=== PATIENT | female | born 1940 | race Caucasian/White ===

== ENCOUNTER 2017-02-26 16:47 | Inpatient (IN) | payer MEDICARE ==
[~2017-02-26] VITALS: Ht 165.1 cm; Wt 73.6 kg
[2017-02-26] VITALS (7 sets, daily range): BP systolic 67–139; BP diastolic 38–94; PULSE 85–113; RESP 12–20; O2SAT 99–100
[2017-02-26 18:45] LABS: APPEARANCE,URINE TURBID (CLEAR,HAZY); COLOR,URINE YELLOW (YELLOW); OCCULT BLOOD,URINE LARGE (NEGATIVE); PH,URINE 5.5 (5.0-8.0); UROBILINOGEN,URINE NORMAL (NORMAL)
--- NOTE | 2017-02-26 19:04 | ED.REPORT ---
HPI-General Illness Date of Service Feb 26, 2017 ED Provider: Dusty Heredia MD A 77 year old female with a history of rectovaginal fistula is referred to the ED from clinic due to hypotension. The pt was seen by her PCP today in a routine appointment and her blood pressure was found to be low. The pt denies any symptoms whatsoever and states that she feels fine. She denies chest pain, shortness of breath, headache, lightheadedness, vision changes, abdominal pain, nausea or vomiting. The pt has an appointment with a citrus picker to address a presumed rectovaginal fistula, which she noticed in 07/2017. The pt has been passing liquid stool for six months. She had a CT scan in 09/2016, which showed the fistula. Nursing Notes Stated Complaint: ORTHOSTATIC Chief Complaint: General Complaint Nursing Notes Reviewed: Yes Allergies: Coded Allergies: No Known Allergies (Unverified , 02/26/17) Scheduled Aspirin Chew (Aspirin Chew) 81 Mg Chew 81 MG PO DAILY Atorvastatin (Lipitor) 40 Mg Tablet 40 MG PO DAILY Ciprofloxacin (Ciprofloxacin) 500 Mg/5 Ml Talisha.mc.rec 500 MG PO BID Miscellaneous Medications Multivitamin (Multivitamins) 1 Each Capsule 1 EACH PO General Time Seen by MD: 17:02 Chief Complaint Other (Hypotension) Hx Obtained From: Patient Arrived By: Walk-in Sudden in Onset?: No Recent Healthcare: No recent hospitalization, Recent doctor visit Similar Sx Previous: No Past Medical History Past Medical History rectovaginal fistula Past Surgical History none reported Smoking History Current Every Day Smoker Ambulatory Status Independent Review of Systems hypotension Full Review of Systems Respiratory: Denies: Non-productive cough, Shortness of breath Cardiovascular: Denies: Chest pain GI: Reports: Diarrhea, Denies: Abdominal pain, Nausea, Vomiting Musculoskeletal: Denies: Back pain, Neck pain Skin: Denies Rash Neurologic: Denies: Lightheaded, Numbness, Vision change Complete sys rev & neg: except as marked. Physical Exam Constitutional: Well-developed, well-nourished. Not diaphoretic. Head: Normocephalic and atraumatic. Mouth/Throat: Oropharynx is clear. Mucus membranes dry. No oropharyngeal exudate. Eyes: EOM are normal. Pupils are equal, round, and reactive to light. Neck: Supple, no tracheal deviation. Cardiovascular: Normal rate, regular rhythm. Equal and intact distal pulses throughout. Pulmonary/Chest: Effort normal and breath sounds normal. No respiratory distress. Abdominal: Soft. No distension. There is no tenderness, rebound, or guarding. Bowel sounds present. Musculoskeletal: Range of motion grossly intact, moving all extremities. No edema or tenderness appreciated. Neurological: AOx3. Grossly nonfocal exam. Strength and sensation intact and equal to bilateral upper and lower extremities. Skin: Warm and dry, no rashes or pallor appreciated. Psychiatric: Appropriate mood and affect. Behavior appears normal. Vital Signs Vital Signs Date Time Temp Pulse Resp B/P Pulse Ox O2 Delivery O2 Flow Rate FiO2 02/26/17 21:53 90 17 124/82 100 Room Air 02/26/17 20:20 36.6 99 17 122/94 100 Room Air 02/26/17 18:40 113 14 67/38 100 Room Air 02/26/17 18:39 85 14 122/66 100 Room Air 02/26/17 18:05 85 12 122/72 100 Room Air 02/26/17 17:10 36.6 93 12 139/63 100 Room Air Initial VS: Reviewed Interpretation & Diagnostics Lab Results Interpretation Result Diagram: 02/27/17 0545 02/27/17 0545 Test 02/26/17 19:25 02/26/17 19:44 02/26/17 20:06 Urine Color Dark yellow (YELLOW) Urine Appearance Cloudy (CLEAR,HAZY) Urine pH 7.0 (5.0-8.0) Urine Specific [place] 1.010 (1.003-1.035) Urine Protein Tracemg/dL (NEG,TRACE) Urine Glucose (UA) Negativemg/dL (NEGATIVE) Urine Ketones Negativemg/dL (NEGATIVE) Urine Occult Blood Large (NEGATIVE) Urine Nitrite Positive (NEGATIVE) Urine Bilirubin Negative (NEGATIVE) Urine Urobilinogen Normalmg/dL (NORMAL) Urine Leukocyte Esterase Large (NEGATIVE) Urine RBC 3-10/hpf (0-2) Urine WBC 6-10/hpf (0-5) Urine Epithelial Cells Few/hpf (NONE-MOD) Urine Crystals None seen (NONE SEEN) Urine Bacteria Many/hpf (NONE-FEW) Urine Hyaline Casts None/lpf (NONE) Urine Granular Casts None seen (NONE SEEN) Urine Waxy Casts None seen (NONE SEEN) Urine Red Blood Cell Casts None seen (NONE SEEN) Urine White Blood Cell Casts None seen (NONE SEEN) Urine Mucus None seen (None Seen) Urine Trichomonas None seen (NONE SEEN) Urine Yeast None (NONE SEEN) Urinalysis Comment None Urine Culture Reflexed Indicated Hold Urine Received (Received) Prothrombin Time 10.6sec (8.1-12.5) Prothromb Time International Ratio 0.99ratio Magnesium Level 2.0mg/dL (1.6-2.6) Troponin T < 0.010ug/L (0.0-0.011) Lipase 49U/L (13-60) Procalcitonin 0.05ng/mL (0.00-0.08) Hold Irizarry Top Tube Received (Received) X-Ray Chest Interpretation Chest Xray Interpretation: IMPRESSION: Diffuse interstitial changes, probably chronic scarring although technically age-indeterminate given the absence of prior studies, therefore recommend clinical correlation to exclude atypical/viral pneumonia. No focal consolidation Dictated by: Anton Castillo M.D. on 02/26/2017 at 20:08 Approved by: Anton Castillo M.D. on 02/26/2017 at 20:09 Interpretation / Wet Read by: Interpret - Radiologist Re-Eval/Medical Decision Med Decision/Clinical Course 77-year-old female presenting to the ED for hypotension noticed in clinic. Asymptomatic with the exception of large volume diarrhea through her presumed rectovaginal fistula. She does have some evidence of UTI. Started on antibiotics in the emergency department. Orthostatics in the emergency department were positive, associated with both tachycardia and hypertension; please see nursing documentation. Given several liters of IV fluids here in the emergency department. Given the above, plan admission for further evaluation and management. Patient agreeable to the plan as stated, no further questions. Source of Hx: Old records Time of Eval: 17:02 Patient Status: Condition improved Re-Evaluation/Progress Note: Pt informed of the need for admission during the initial interview. The pt understands and agrees with the plan. All questions are addressed at this time. Consultation : Referral / Consult Name: Evelio Granados MD Consulted With: Hospitalist Call Returned at: 22:16 Personal Counselor: Agrees with eval, Agrees with plan, Accepts admit Note: Spoke with Dr. Granados, hospitalist, regarding pt's case. Dr. Granados agrees with the evaluation and agrees to admit the pt. Counseled Regarding: Diagnosis, Lab results, Need for admission Discharge & Departure Primary Impression: UTI (urinary tract infection) Urinary tract infection type: site unspecified Hematuria presence: without hematuria Qualified Code: N39.0 - Urinary tract infection, site not specified Additional Impressions: Hypotension Hypotension type: unspecified hypotension type Qualified Code: I95.9 - Hypotension, unspecified Dehydration Disposition: ADMITTED TO HOSPITAL Discharge Condition All VS Reviewed: Yes Condition: Stable Referrals: Flaco Miller (PCP) Rosalba Attestation Portions of this note were transcribed by Michael Esquivel. I, Dr. Heredia personally performed the history, physical exam and medical decision-making; I reviewed and confirmed the accuracy of the information in the transcribed note. Signed by: Rosalba Pizarro, 02/26/2017 and 2249. copies to: Flaco Miller William B MD Feb 26, 2017 19:04 MICHAEL ESQUIVEL Feb 26, 2017 19:11 81mg/dL (60-99) Calcium Level 8.5mg/dL (8.5-10.1) Magnesium Level 2.0mg/dL (1.6-2.6) Total Bilirubin 0.3mg/dL (0.0-1.2) Aspartate Amino Transf (AST/SGOT) 14U/L (0-50) Alanine Aminotransferase (ALT/SGPT) 7U/L (0-32) Alkaline Phosphatase 61U/L (25-165) Troponin T < 0.010ug/L (0.0-0.011) Total Protein 7.2g/dL (6.4-8.4) Albumin 3.1g/dL (3.4-5.0) Lipase 49U/L (13-60) Hold Irizarry Top Tube Received (Received) X-Ray Chest Interpretation Chest Xray Interpretation: IMPRESSION: Diffuse interstitial changes, probably chronic scarring although technically age-indeterminate given the absence of prior studies, therefore recommend clinical correlation to exclude atypical/viral pneumonia. No focal consolidation Dictated by: Anton Castillo M.D. on 02/26/2017 at 20:08 Approved by: Anton Csatillo M.D. on 02/26/2017 at 20:09 Interpretation / Wet Read by: Interpret - Radiologist Re-Eval/Medical Decision Source of Hx: Old records Time of Eval: 17:02 Patient Status: Condition improved Re-Evaluation/Progress Note: Pt informed of the need for admission during the initial interview. The pt understands and agrees with the plan. All questions are addressed at this time. Consultation : Referral / Consult Name: Evelio Granados MD Consulted With: Hospitalist Call Returned at: 22:16 Personal Counselor: Agrees with eval, Agrees with plan, Accepts admit Note: Spoke with Dr. Granados, hospitalist, regarding pt's case. Dr. Granados agrees with the evaluation and agrees to admit the pt. Counseled Regarding: Diagnosis, Lab results, Need for admission Discharge & Departure Primary Impression: UTI (urinary tract infection) Urinary tract infection type: site unspecified Hematuria presence: without hematuria Qualified Code: N39.0 - Urinary tract infection, site not specified Additional Impressions: Hypotension Hypotension type: unspecified hypotension type Qualified Code: I95.9 - Hypotension, unspecified Dehydration Disposition: ADMITTED TO HOSPITAL Discharge Condition All VS Reviewed: Yes Condition: Stable Referrals: Flaco Miller (PCP) Rosalba Attestation Portions of this note were transcribed by Michael Esquivel. I, Dr. Heredia personally performed the history, physical exam and medical decision-making; I reviewed and confirmed the accuracy of the information in the transcribed note. Signed by: Rosalba Pizarro, 02/26/2017 and 2249. copies to: Flaco Miller William B MD Feb 26, 2017 19:04 MICHAEL ESQUIVEL Feb 26, 2017 19:11
[2017-02-26] MEDS: 0.9% Sodium Chloride 1,000 ML IV ONE ×2 (19:54→19:58)
[2017-02-26 20:01] LABS: APPEARANCE,URINE CLOUDY (CLEAR,HAZY); COLOR,URINE DARK YELLOW (YELLOW)
[2017-02-26 20:02] LABS: OCCULT BLOOD,URINE LARGE (NEGATIVE); UROBILINOGEN,URINE NORMAL (NORMAL)
--- NOTE | 2017-02-26 20:11 | DRSVH ---
PROCEDURE: X-RAY CHEST ONE VIEW, PORTABLE ([id number]) INDICATIONS: hypotension TECHNIQUE: One view of the chest was acquired. COMPARISON: None. FINDINGS: Surgical changes and devices: None. Lungs and pleura: No pleural effusions or pneumothorax. Widespread bilateral interstitial change. No focal consolidation. Mediastinum: Mediastinal contours appear normal. Heart size is normal. Bones and chest wall: No suspicious bony lesions. Overlying soft tissues appear unremarkable. IMPRESSION: Diffuse interstitial changes, probably chronic scarring although technically age-indeterm inate given the absence of prior studies, therefore recommend clinical correlation to exclude atypica l/viral pneumonia. No focal consolidation Dictated by: Anton Castillo M.D. on 02/26/2017 at 20:08 Approved by: Anton Castillo M.D. on 02/26/2017 at 20:09
[2017-02-26 20:17] LABS: BASOPHILS % (AUTO) 0.5 % (0-3); EOSINOPHILS % (AUTO) 1.5 % (0-5); MONOCYTES % (AUTO) 8.6 % (4-12); Mean Corpuscular Hemoglobin 27.3 pg (27.0-35.0); Mean Corpuscular Volume 83.9 fL (81-100); NEUTROPHILS % (AUTO) 55.7 % (40-74); Platelet Count 383 bil/L (150-400)
[2017-02-26 20:34] LABS: INR 0.99 ratio
[2017-02-26 20:42] LABS: TROPONIN T < 0.010 ug/L (0.0-0.011)
[2017-02-26 20:52] LABS: Lipase 49 U/L (13-60)
[2017-02-26] MEDS ORDERED: levoFLOXacin Inj 750 MG in IV Premix 1 EACH IV ONE (22:20)
[2017-02-26] MEDS ORDERED: Polyethylene Glycol (PEG) 17 Gm Powder PO PRN (22:30)
[2017-02-26] MEDS ORDERED: Ondansetron 2 mg/mL 2 mL Inj IVPUSH PRN (22:30)
[2017-02-26] MEDS ORDERED: Alum-Mag Hydrox-Simeth 30 mL Suspension PO PRN (22:30)
--- NOTE | 2017-02-26 23:03 | PCM.HPMED ---
Subjective Date of Service Feb 26, 2017 Primary Provider: Admitting Physician: Evelio Granados MD Primary Care Physician: Flaco Miller Attending Physician: Evelio Granados MD Chief Complaint: Hypotension History of Present Illness: Josette Herndon is a pleasant 77-year-old woman who was referred to the emergency department by her primary care doctor established care visit for very low blood pressure, reportedly by patient they were unable to find it numerous times because it was so low. Patient denies any lightheadedness or dizziness, confusion, chest pain, shortness of breath, cough, palpitations, NVD, hematochezia or melena. Reportedly, she has an appointment with percussion tuner to address a rectovaginal fistula that she found in September of this year, that appointment is scheduled for 03/22/2017. She additionally conveys that in September of this year she was in [facility] for suicidal ideation and malnutrition, which when she was diagnosed with a urinary tract infection was treated there as well over the course of 8 days. Prior to her doctor's visit today, she states yesterday she was at an nurse emergency for preop evaluation where they reportedly found "branching of her heartbeat" and did not clear her for cataract surgery. Vitals in the emergency department show on presentation to be 139/63, 93, 12, 36.6, 100% on room air Orthostatics revealed a drop in blood pressure to 67/38 with an accompanying heart rate of 113. She was asymptomatic during that event. Hemoglobin 11.4, WBC 11.1 CMP unremarkable, troponin negative, lipase negative Urinalysis was dark yellow, pH 7, trace protein, large occult blood, positive nitrite, large leukocyte esterase, 3-10 RBC per high-power field, 6-10 WBC, few epithelial cells, many bacteria EKG was performed by EMS: Sinus rhythm, left axis deviation, rate 90, QTc 454, VA 142, left bundle branch block, "possible inferior infarct-age indeterminate" Chest x-ray showed diffuse interstitial changes, probable chronic scarring, with no previous x-ray to compare to. Based on objective hypotension, finding of urinary tract infection in the presence of rectovaginal fistula, patient is admitted to the medical floor and started on antibiotics and placed on telemetry. Review of Systems: A comprehensive review of systems was conducted with the patient and found to be negative except as above in the history of presenting illness. Allergies Coded Allergies: No Known Allergies (Unverified , 02/26/17) Home Medications ASA 81 mg by mouth daily Multivitamin daily PMH Alcoholism, sober forty years Chronic tobacco abuse Rectovaginal fistula History of suicidal ideation and malnutrition Surgical History Hysterectomy, Tonsillectomy in childhood Family History Mom passed from unknown reason in her 80s Dad past of unknown cancer in his 80s Older and younger brothers have both had myocardial infarctions older brother is . Social History Hx Alcohol Use: No (sober from alcoholic 40 years) Hx Substance Use: No Hx Tobacco Use: Yes Smoking Status: Current Every Day Smoker (10 cigarettes per day since 16 years old) Living Arrangement: Alone Exam Vital Signs Vital Sign - Last Date Time Temp Pulse Resp B/P Pulse Ox O2 Delivery O2 Flow Rate FiO2 02/26/17 22:55 36.6 90 17 124/82 100 Room Air Exam General: Laying in bed, no apparent distress. Appropriate and pleasant affect HEENT: Normocephalic, atraumatic, EOMI grossly, mucous membranes moist, neck supple without lymphadenopathy, conjunctiva are pink Cardiovascular: Regular rate and rhythm, no clicks murmurs rubs, peripheral pulses 2/4 equal bilaterally Pulmonary: Clear to auscultation bilaterally, no W/R/R. Abdominal: Soft to palpation, bowel sounds present 4, no hepatosplenomegaly. Negative rebound. Negative CVA tenderness Extremities: No edema appreciated. No tenderness, asymmetry. Neuro: Neurologically grossly intact, strength is equal bilaterally upper and lower extremities. MSK: Able to move extremities on their own volition, strength 5 out of 5 equal bilaterally to upper and lower extremities. Lab and Diagnostics Result Diagram: 02/26/17200502/26/172005 X-Rays, CTs and MRIs General: Laying in bed, no apparent distress. Appropriate and pleasant affect HEENT: Normocephalic, atraumatic, EOMI grossly, mucous membranes moist, neck supple without lymphadenopathy, conjunctiva are pink Cardiovascular: Regular rate and rhythm, no clicks murmurs rubs, peripheral pulses 2/4 equal bilaterally Pulmonary: Clear to auscultation bilaterally, no W/R/R. Abdominal: Soft to palpation, bowel sounds present 4, no hepatosplenomegaly. Negative rebound. Extremities: No edema appreciated. No tenderness, asymmetry. Neuro: Neurologically grossly intact, strength is equal bilaterally upper and lower extremities. MSK: Able to move extremities on their own volition, strength 5 out of 5 equal bilaterally to upper and lower extremities. Psych: Oriented to person place time, situation. Appropriate mood and affect, laughs about previously being suicidal. 12-lead ECG Sinus rhythm, left axis deviation, rate 90, QTc 454, VA 142, left bundle branch block, "possible inferior infarct-age indeterminate" Assessment & Plan 77-year-old woman with rectovaginal fistula presents with orthostatic hypotension, being found to be hypotensive previous 2 days by outpatient medical staff, has remained nonsymptomatic. Subsequently found to have left bundle branch block, urinary tract infection with red blood cells present. Acute urinary tract infection, present on admission, active Urinalysis showed positive nitrites, many bacteria, white blood cells, and up to 10 red blood cells per high-powered field, 1 dose level of levofloxacin given in the emergency department Urine to culture and sensitivity Change antibiotics to ceftriaxone IV, do not suspect ESBL Acquire [place] hospitalization records to compare previous urinalysis/ culture and sensitivities. Acute hemorrhagic cystitis, present on admission, active Most likely secondary to above. However, bladder cancer not ruled out given significant smoking history. Will review previous UA from [place] when records available. Re-check urine following ABX treatment, if still present, follow up with urology as out patient. Nonsymptomatic Orthostatic Hypotension, present on admission, active Producible in the emergency department, heart rate increased to 113 from 85, systolic decrease from 122 to 67. EKG showing left bundle branch block, no previous to compare with. Risk factors include long-standing tobacco abuse Echocardiogram in the morning Troponin negative Placed on telemetry Request records from [facility]. Acute leukocytosis, present on admission, active White blood cells 11.1, no left shift. Most likely secondary to urinary tract infection as described above Chronic Rectovaginal fistula, POA, Has appointment with Dr. Keita on 03/22/2017 at [facility] Tobacco use disorder, POA, uncontrolled 14mg/hr transdermal patch every 24 hours PRN Tobacoo cessation education History of depression, stable Denies SI/HI at this time Patient admitted under inpatient status with expected length of stay > 2 midnights for severity of present symptoms, complexities of treatment plan and risk for adverse events Pain Evaluation: Adequate Pain Control GI Prophylaxis: Not indicated VTE Prophylaxis: Sub-Q Heparin (Unfractionated) Resuscitation Status: CPR: Attempt Resuscitation Attending Statement The patient was seen and examined together with Dr. Stewart on 02/27 and I agree with the history, exam and plan as outlined in the note above. Michael Guevara DO Feb 26, 2017 23:03 Evelio Granados MD Feb 27, 2017 03:18
[2017-02-27] VITALS (7 sets, daily range): BP systolic 84–143; BP diastolic 57–79; PULSE 86–130; RESP 18–20; O2SAT 95–96
[2017-02-27] MEDS ORDERED: MULT1CAP33 PO (00:58)
[2017-02-27] MEDS ORDERED: ASPI81TA3 PO (00:58)
[2017-02-27] MEDS: Heparin 5,000 Unit/mL Inj SUBQ SCH ×2 (01:04→08:30)
--- NOTE | 2017-02-27 02:05 | NUR ---
Pt admitted to [facility] rm [id number] at 2330 from ED. Pt had been to see her new primary MD today and it was noted she had severe hypotension but was asymptomatic. Pt had been to her eye MD day before for pre op for cataract surgery and was found to have left bundle branch block and surgery was canceled. Pt diagnosed with UTI and hypotension. A/O x4. Pt is FULL CODE. Oriented to room, call light and bathroom. Advised Pt she is at risk for falls with hypotension and she became very upset and angry. Stated she was tired and needed to sleep and did not want vitals taken and she did not need any help. She did not understand why she was here. And she was not going to use her call light for help. Explained why she was admitted and procedures. Pt began to cry and stated "it feels so good to cry finally" she went on to explain she have been suicidal in September and was admitted to [place]. She assured she was not a suicide threat, and has been to counseling. After assessing balance, gait and VS as stable, She agreed she would use BSC and the call light as she has urgency with bowels due to fistula between bowel and vagina. Pt became very happy, joking and apologized for her "grouchy" behavior when she arrived. Finished orienting Pt to room. IV right FA, asymptomatic, SL. 0 c/o pain. Call light within reach, bed in low position.
[2017-02-27 06:34] LABS: BASOPHILS % (AUTO) 0.7 % (0-3); MONOCYTES % (AUTO) 11.6 % (4-12); Mean Corpuscular Hemoglobin 27.4 pg (27.0-35.0); Mean Corpuscular Volume 84.3 fL (81-100); NEUTROPHILS % (AUTO) 48.8 % (40-74); Platelet Count 408 bil/L (150-400)
[2017-02-27] MEDS ORDERED: cefTRIAXone Inj 1,000 MG in Dextrose 5% Minibag Plus 50 ML IV SCH (08:00)
[2017-02-27] MEDS ORDERED: Nystatin 100,000 Unit/Gm 15 Gm Powder TOPICAL SCH (09:55)
--- NOTE | 2017-02-27 10:39 | PCM.PNMED ---
Subjective Date of Service Feb 27, 2017 Subjective pt denied any symptoms, stated she had urinary frequency 15-20 urination per day since Sep. noted markedly positive orthostatic vs134/79 supine, 84/57 standing. pt was not symptomatic, ambulating okay Exam Vital Signs Vital Sign - Last Date Time Temp Pulse Resp B/P Pulse Ox O2 Delivery O2 Flow Rate FiO2 02/27/17 10:00 88 02/27/17 09:24 84/57 02/27/17 08:54 36.7 18 95 Room Air Intake and Output 02/26/17 02/26/17 02/27/17 Cumulative From/Thru 15:00 23:00 07:00 02/26/17 17:10 - 02/27/17 00:09 Intake Total 2000 ml 2000 ml Balance 2000 ml 2000 ml IV Total 2000 ml 2000 ml Exam NAD, comfortably laying down on the bed no JVD, MMM, no LAD RRR, nl s1, s2 no mrg CTAB, no w,c S,ND,NT,normoactive BS+ warm, no edema, pulses 2/2 IVs and Medications Medications Reviewed: Medications were reviewed in detail Lab and Diagnostics Result Diagram: 02/27/1754402/27/17 0545 X-Rays, CTs and MRIs General: Laying in bed, no apparent distress. Appropriate and pleasant affect HEENT: Normocephalic, atraumatic, EOMI grossly, mucous membranes moist, neck supple without lymphadenopathy, conjunctiva are pink Cardiovascular: Regular rate and rhythm, no clicks murmurs rubs, peripheral pulses 2/4 equal bilaterally Pulmonary: Clear to auscultation bilaterally, no W/R/R. Abdominal: Soft to palpation, bowel sounds present 4, no hepatosplenomegaly. Negative rebound. Extremities: No edema appreciated. No tenderness, asymmetry. Neuro: Neurologically grossly intact, strength is equal bilaterally upper and lower extremities. MSK: Able to move extremities on their own volition, strength 5 out of 5 equal bilaterally to upper and lower extremities. Psych: Oriented to person place time, situation. Appropriate mood and affect, laughs about previously being suicidal. 12-lead ECG Sinus rhythm, left axis deviation, rate 90, QTc 454, [place] 142, left bundle branch block, "possible inferior infarct-age indeterminate Assessment & Plan 77-year-old woman with rectovaginal fistula presents with orthostatic hypotension, being found to be hypotensive previous 2 days by outpatient medical staff, has remained nonsymptomatic. Subsequently found to have left bundle branch block, urinary tract infection with red blood cells present. acute, active acute on chronic UTI, POA, only sx with frequency, UA+ for pyruia/bacteriuria -empirically started CFX, will continue for now marked orthostatic hypotension, POA, unclear etiology, pt doesn't have known autonomic instability not diabetic, no sig cardiovascular dz. no prior falls -will consider TTE, repeat orthostatic on bilateral arms -consider fludrocortisone if pt is symptomatic -continue telemetry -get lipid panel, a1c for risk stratification chronic, stable, Chronic Rectovaginal fistula, POA, likely related to remote hx of hysterectomy, -Has appointment with Dr. Keita on 03/22/2017 at [facility], -addressed strict hygiene on perineum especially given risks of UTI -will consider CT if sx worses Tobacco use disorder, POA, uncontrolled, contiue 14mg/hr transdermal patch every 24 hours PRN, Tobacoo cessation education History of depression, diet: general dispo: likely 1-2days, home no need dvt ppx: LMWH FC GI Prophylaxis: Not indicated VTE Prophylaxis: Sub-Q Heparin (Unfractionated) VTE Mechanical Devices: Intermittant Pneumatic CD Resuscitation Status: CPR: Attempt Resuscitation Time spent 35min Rashad Bravo MD Feb 27, 2017 10:39
--- NOTE | 2017-02-27 12:22 | NUR ---
[facility] signed
--- NOTE | 2017-02-27 13:59 | NUR ---
Orthostatic BP Did orthostatic BP this am was 134/79 when laying down, 104/71 when sitting up and 84/57 when standing. took pt BP this afternoon after she had just sat down after walking around room. Was 115/68 Addendum: 02/27/17 at 1800 by JUAN F LIGHT RN pt asymptomatic when up walking around
--- NOTE | 2017-02-27 14:01 | NUR ---
Agitation Pt is very adamant on leaving. paged , Echo showed up, able to talk pt into getting Echo done before leaving. waiting for response from
[2017-02-27] MEDS ORDERED: CIPR500S3 PO (15:39)
[2017-02-27] MEDS ORDERED: LIP40 PO (15:39)
--- NOTE | 2017-02-27 15:52 | PCM.DIMED ---
Discharge Instructions Date of Service Feb 27, 2017 Dates of Hospitalization Feb 26, 2017 at 22:54 Discharge Diagnosis Discharge Diagnosis complicated cystitis likely due to E.coli severe asymptomatic orthostatic hypotension, Medication Instructions Additional med instructions Ciprofloxacin 500mg twice a day for 8more days Lipitor 40mg daily Diet Discharge Diet: Low fat, Low Sodium, Heart Healthy Activity Discharge Activity: No restrictions Patient Instructions Patient Instructions You were hospitalized with concern for low blood pressure. You were asymptomatic with big difference of blood pressure. You were also found to have bacteria in your urine. please follow instruction as we discussed. I will reach you if you require different antibiotics for your UTI. please follow up with your new PCP. as scheduled Follow-up Provider: Flaco Miller Follow-up with PCP in: 2 weeks Rashad Bravo MD Feb 27, 2017 15:52
--- NOTE | 2017-02-27 16:08 | NUR ---
Discharge Pt left via cab in stable condition with all belongings at 1550, IV d/c'd, prescriptions given, pt no willing to wait the 10 minutes for doctor to finish discharge paperwork. signed the finished med rec discussed discharge instructions prior to pt leaving and printed off the prescriptions. verbalized she would follow up with her PCP and take antibiotics as prescribed.
--- NOTE | 2017-02-27 16:40 | NUR ---
Social Work: Attempted Assessment/Discharge DAP: EMR reviewed. Pt is a 77 y/o female admitted for UTI, hypotension, and dehydration. SW attempted to completed initial assessment but pt discharged prior to being seen by SW. Per RN notes, pt was in stable condition and not willing to wait for MD to complete discharge ppw. Pt left via taxi and confirmed she will follow up with her PCP. ZACH Stewart
--- NOTE | 2017-02-28 15:05 | PCM.DC.MED ---
Discharge Summary Date of Service Feb 27, 2017 Dates of Hospitalization Date of Hospital Admission Feb 26, 2017 at 22:54 Date of Discharge: Feb 27, 2017 Providers: Admitting Physician: Evelio Granados MD Primary Care Physician: Flaco Miller Attending Physician: Evelio Granados MD Diagnosis at Time of Discharge Diagnosis at Time of Discharge acute dx Complicated cystitis likely due to E.coli Severe asymptomatic orthostatic hypotension, chronic dx Chronic Rectovaginal fistula, Tobacco use disorder, History of depression Procedures XRay, CTs & MRIs General: Laying in bed, no apparent distress. Appropriate and pleasant affect HEENT: Normocephalic, atraumatic, EOMI grossly, mucous membranes moist, neck supple without lymphadenopathy, conjunctiva are pink Cardiovascular: Regular rate and rhythm, no clicks murmurs rubs, peripheral pulses 2/4 equal bilaterally Pulmonary: Clear to auscultation bilaterally, no W/R/R. Abdominal: Soft to palpation, bowel sounds present 4, no hepatosplenomegaly. Negative rebound. Extremities: No edema appreciated. No tenderness, asymmetry. Neuro: Neurologically grossly intact, strength is equal bilaterally upper and lower extremities. MSK: Able to move extremities on their own volition, strength 5 out of 5 equal bilaterally to upper and lower extremities. Psych: Oriented to person place time, situation. Appropriate mood and affect, laughs about previously being suicidal. ECG 12 Lead Sinus rhythm, left axis deviation, rate 90, QTc 454, MI 142, left bundle branch block, "possible inferior infarct-age indeterminate Brief History max Herndon is a pleasant 77-year-old woman who was referred to the emergency department by her primary care doctor established care visit for very low blood pressure, reportedly by patient they were unable to find it numerous times because it was so low. Patient denies any lightheadedness or dizziness, confusion, chest pain, shortness of breath, cough, palpitations, NVD, hematochezia or melena. Reportedly, she has an appointment with data migration lead to address a rectovaginal fistula that she found in September of this year, that appointment is scheduled for 03/22/2017. She additionally conveys that in September of this year she was in [facility] for suicidal ideation and malnutrition, which when she was diagnosed with a urinary tract infection was treated there as well over the course of 8 days. Prior to her doctor's visit today, she states yesterday she was at an [facility] for preop evaluation where they reportedly found "branching of her heartbeat" and did not clear her for cataract surgery. Vitals in the emergency department show on presentation to be 139/63, 93, 12, 36.6, 100% on room air Orthostatics revealed a drop in blood pressure to 67/38 with an accompanying heart rate of 113. She was asymptomatic during that event. Hemoglobin 11.4, WBC 11.1 CMP unremarkable, troponin negative, lipase negative Urinalysis was dark yellow, pH 7, trace protein, large occult blood, positive nitrite, large leukocyte esterase, 3-10 RBC per high-power field, 6-10 WBC, few epithelial cells, many bacteria EKG was performed by EMS: Sinus rhythm, left axis deviation, rate 90, QTc 454, MI 142, left bundle branch block, "possible inferior infarct-age indeterminate" Chest x-ray showed diffuse interstitial changes, probable chronic scarring, with no previous x-ray to compare to. Based on objective hypotension, finding of urinary tract infection in the presence of rectovaginal fistula, patient is admitted to the medical floor and started on antibiotics and placed on telemetry. Hospital Course 77-year-old woman with rectovaginal fistula presents with orthostatic hypotension, being found to be hypotensive previous 2 days by outpatient medical staff, has remained nonsymptomatic. Subsequently found to have left bundle branch block, urinary tract infection with red blood cells present. acute dx acute on chronic UTI, POA, only sx with frequency, UA+ for pyruia/bacteriuria, pt was empirically started CFX, remained HD stable, afebrile. Rocephin was changed to Ciprofloxacin po.Later UCX showed E.Coli pansensitive. plan is to continue total of 10days. marked orthostatic hypotension, POA, unclear etiology as pt doesn't have known autonomic instability not diabetic, no sig cardiovascular dz. Although pt was recommended to stay for longer duration with telemetry, finish cardiac w/u with [facility]. Patient was very adamant about leaving the hospital, wanted to AMA. Given asymptomatic nature, pt deemed safe for d/c. Later report from [facility]TE suggested that patient has mod to severe septal wall motion abnormalities. This findings were discussed on the phone with the patient on the next day of d/c. Patient was still asymptomatic, denied any new complaints. pt was asked to follow up with PCP for possible ischemic cardiac w/u, cardiology consult, follow up Full report of TTE. pt agreed on the plan, chronic dx Chronic Rectovaginal fistula, POA, likely related to remote hx of hysterectomy, pt has appointment with Dr. Keita on 03/22/2017 at [facility], addressed strict hygiene on perineum especially given risks of UTI Tobacco use disorder, POA, uncontrolled, contiued 14mg/hr transdermal patch every 24 hours PRN, Tobacoo cessation education made. History of depression, stable Exam Vital Signs (Last) Date Time Temp Pulse Resp B/P Pulse Ox O2 Delivery O2 Flow Rate FiO2 02/27/17 13:52 130 115/68 02/27/17 08:54 36.7 18 95 Room Air Exam NAD, comfortably laying down on the bed no JVD, MMM, no LAD RRR, nl s1, s2 no mrg CTAB, no w,c S,ND,NT,normoactive BS+ warm, no edema, pulses 2/2 Test 02/26/17 19:25 02/26/17 19:44 02/26/17 20:06 02/27/17 05:45 Urine Color Dark yellow (YELLOW) Urine Appearance Cloudy (CLEAR,HAZY) Urine pH 7.0 (5.0-8.0) Urine Specific [place] 1.010 (1.003-1.035) Urine Protein Tracemg/dL (NEG,TRACE) Urine Glucose (UA) Negativemg/dL (NEGATIVE) Urine Ketones Negativemg/dL (NEGATIVE) Urine Occult Blood Large (NEGATIVE) Urine Nitrite Positive (NEGATIVE) Urine Bilirubin Negative (NEGATIVE) Urine Urobilinogen Normalmg/dL (NORMAL) Urine Leukocyte Esterase Large (NEGATIVE) Urine RBC 3-10/hpf (0-2) Urine WBC 6-10/hpf (0-5) Urine Epithelial Cells Few/hpf (NONE-MOD) Urine Crystals None seen (NONE SEEN) Urine Bacteria Many/hpf (NONE-FEW) Urine Hyaline Casts None/lpf (NONE) Urine Granular Casts None seen (NONE SEEN) Urine Waxy Casts None seen (NONE SEEN) Urine Red Blood Cell Casts None seen (NONE SEEN) Urine White Blood Cell Casts None seen (NONE SEEN) Urine Mucus None seen (None Seen) Urine Trichomonas None seen (NONE SEEN) Urine Yeast None (NONE SEEN) Urinalysis Comment None Urine Culture Reflexed Indicated Hold Urine Received (Received) Prothrombin Time 10.6sec (8.1-12.5) Prothromb Time International Ratio 0.99ratio Magnesium Level 2.0mg/dL (1.6-2.6) Troponin T < 0.010ug/L (0.0-0.011) Lipase 49U/L (13-60) Procalcitonin 0.05ng/mL (0.00-0.08) Hold Irizarry Top Tube Received (Received) White Blood Count 8.6th/mm3 (3.8-10.1) Red Blood Count 4.34mil/mm3 (3.90-5.20) Hemoglobin 11.9g/dL (12.0-15.6) Hematocrit 36.6% (35.0-46.0) Mean Corpuscular Volume 84.3fL (81-100) Mean Corpuscular Hemoglobin 27.4pg (27.0-35.0) Mean Corpuscular Hemoglobin Concent 32.5% (32.0-37.0) Red Cell Distribution Width 18.2% (12.3-15.4) Platelet Count 408bil/L (150-400) Neutrophils (%) (Auto) 48.8% (40-74) Lymphocytes (%) (Auto) 36.7% (14-46) Monocytes (%) (Auto) 11.6% (4-12) Eosinophils (%) (Auto) 2.0% (0-5) Basophils (%) (Auto) 0.7% (0-3) Sodium Level 141mEq/L (134-144) Potassium Level 4.6mEq/L (3.5-5.2) Chloride Level 103mEq/L (97-108) Carbon Dioxide Level 25mmol/L (18-29) Blood Urea Nitrogen 15mg/dL (8-27) Creatinine 0.76mg/dL (0.57-1.00) Estimat Glomerular Filtration Rate 106mL/min (>59) Glucose Level 89mg/dL (60-99) Calcium Level 9.1mg/dL (8.5-10.1) Total Bilirubin 0.2mg/dL (0.0-1.2) Aspartate Amino Transf (AST/SGOT) 17U/L (0-50) Alanine Aminotransferase (ALT/SGPT) 8U/L (0-32) Alkaline Phosphatase 65U/L (25-165) Total Protein 7.2g/dL (6.4-8.4) Albumin 3.3g/dL (3.4-5.0) Triglycerides Level 154mg/dL (0-149) Cholesterol Level 229mg/dL (100-199) LDL Cholesterol, Calculated 160.200mg/dL (0-99) VLDL Cholesterol 30.800mg/dL HDL Cholesterol 38mg/dL (>39) Cholesterol/HDL Ratio 6.03 (0.0-4.4) Thyroid Stimulating Hormone (TSH) 2.780uIU/mL (0.450-4.500) Free Thyroxine 0.90ng/dL (0.82-1.77) Discharge Medications Discharge Medications Aspirin Chew (Aspirin Chew) 81 Mg Chew 81 MG PO DAILY (Reported) Atorvastatin (Lipitor) 40 Mg Tablet 40 MG PO DAILY Prescribed by: RASHAD AVILEZ MD Ciprofloxacin (Ciprofloxacin) 500 Mg/5 Ml Talisha.[email or web address].rec 500 MG PO BID Prescribed by: RASHAD AVILEZ MD Miscellaneous Medications Multivitamin (Multivitamins) 1 Each Capsule 1 EACH PO (Reported) Additional med instructions Ciprofloxacin 500mg twice a day for 8more days Lipitor 40mg daily Followup Plan Disposition: home Discharge Diet: Low fat, Low Sodium, Heart Healthy Discharge Activity: No restrictions Patient Instructions You were hospitalized with concern for low blood pressure. You were asymptomatic with big difference of blood pressure. You were also found to have bacteria in your urine. please follow instruction as we discussed. I will reach you if you require different antibiotics for your UTI. please follow up with your new PCP. as scheduled Follow-up Provider: Flaco Miller Follow-up with PCP in: 2 weeks Time spent 65min Rashad Avilez MD Feb 28, 2017 15:05
== END 2017-02-27 15:55 | disposition home or self-care (01) | DRG 690 ==
LOC: EDBD 16:47 → SED 16:47 → OSC 22:54 → OBSVTOIN 22:54
PROVIDERS: ADMIT Hospitalist; ATTEND Hospitalist
DX: N30.90 Cystitis, unspecified without hematuria (principal); N82.3 Fistula of vagina to large intestine; Z79.82 Long term (current) use of aspirin; F17.210 Nicotine dependence, cigarettes, uncomplicated; I95.1 Orthostatic hypotension; D72.829 Elevated white blood cell count, unspecified; B96.20 Unspecified Escherichia coli [E. coli] as the cause of diseases classified elsewhere